=== PATIENT | female | born 1990 | race Caucasian/White ===

== ENCOUNTER 2019-09-11 15:51 | Outpatient (CLI) | payer OTHER, SELFPAY ==
--- NOTE | ~2019-09-11 | US_ITS ---
EXAMINATION: US OB <=14 wk fetus w TV DATE: 09/11/2019 16:48 INDICATION: First trimester dating TECHNIQUE: Real-time pelvic transabdominal and transvaginal ultrasound was performed. COMPARISON: None. FINDINGS: The uterus measures 15.4 x 7.0 x 8.1 cm. There is an intrauterine gestational sac. A yolk sac is identified. heart motion is identified measuring 173 beats per minute (bpm) by M-mode Do ppler. The crown rump length measures 3.7 cm , which correlates with an estimated gestational a ge of 10 weeks and 4 day(s) (+/-) 7 day(s). The right ovary measures 1.5 x 2.4 x 2.1 cm. The left ovary measures 2.9 x 1.1 x 2.7 cm. There is no free fluid in the pelvis. IMPRESSION: 1. Live intrauterine with an estimated gestational age of 10 weeks and 4 day(s) (+/-) 7 day (s) and an estimated delivery date of 04/04/2020. Reviewed, dictated and finalized at location A. IMPRESSION: 1. Live intrauterine with an estimated gestational age of 10 weeks an d 4 day(s) (+/-) 7 day(s) and an estimated delivery date of 04/04/2020.
== END 2019-09-11 15:52 | disposition home or self-care (01) ==
LOC: ANHIMG 15:53
PROVIDERS: PCP Family Medicine; Visit Provider Student in an Organized Health Care Education/Training Program
DX: Z32.00 Encounter for pregnancy test, result unknown (principal); Z3A.10 10 weeks gestation of pregnancy
CPT/HCPCS: 76801; 76817

== ENCOUNTER 2019-10-01 09:43 | Outpatient (CLI) | payer OTHER, SELFPAY ==
[2019-10-01 10:16] LABS: Basophils Absolute Auto 0.1 K/mm3 (0.0-0.1); Basophils Percent Auto 0.4 % (0.2-1.2); Eosinophils Absolute Auto 0.1 K/mm3 (0-0.3); Eosinophils Percent Auto 0.9 % (0-4.4); Hematocrit 33.9 % (37.0-47.0); Hemoglobin 11.3 g/dL (12.0-15.0); Immature Granulocyte Absolute 0.14 K/mm3 (0.00-0.031); Immature Granulocyte Percent A 1.1 % (0-0.5); Lymphocytes Percent Auto 13.4 % (18.3-44.2); Mean Corpuscular HGB Conc 33.3 g/dl (32-36); Mean Corpuscular Hemoglobin 30.1 pg (26-34); Mean Corpuscular Volume 90.2 fl (80-100); Mean Platelet Volume 10.1 fl (7.4-10.4); Monocytes Absolute Auto 0.7 K/mm3 (0.1-0.6); Monocytes Percent Auto 5.1 % (2.6-8.5); Neutrophils Percent Auto 79.1 % (45.5-73.1); Platelet Count Result 195 k/mm3 (150-375); Red Blood Count 3.76 M/mm3 (4.2-5.4); Red Cell Distribution Width 12.8 % (11.5-14.5); White Blood Count 12.7 K/mm3 (4.5-10.0)
[2019-10-01 10:18] LABS: Add Urine Microscopic? NO; Appearance Urine Clear (Clear); Bilirubin Urine Negative (Negative); Blood Urine Negative (Negative); Color Urine Straw (Yellow); Glucose Urine UA Negative (Negative); Ketones Urine Negative (Negative); Leukocyte Esterase Ur Negative LEU/UL (NEGATIVE); Nitrate Urine Negative (Negative); Protein Urine Negative (Negative); Specific Grav Ur 1.008 (1.001-1.035); Urobilinogen Urine Negative mg/dL (<2.0)
[2019-10-01 11:07] LABS: Vitamin D 25 Hydroxy 25.3 ng/mL
[2019-10-01 11:10] LABS: Thyroid Stimulating Hormone 0.286 uIU/mL (0.465-4.680)
[2019-10-01 11:23] LABS: Hepatitis B Surface Antigen Negative (Negative); Rubella IgG Antibody 7.6 IU/ML
[2019-10-01 11:26] LABS: HIV 1/2 Ab P24 Ag Result Negative (Negative); Hepatitis C Virus Antibody Negative (Negative)
[2019-10-02 11:27] LABS: Rapid Plasma Reagin Non-Reactive (NonReactive)
[2019-10-04 00:10] LABS: Hematocrit 36.7 % (35.0-45.0); Hemoglobin 11.6 g/dL (11.7-15.5); MCH 30.8 pg (27.0-33.0); MCV 97.3 FL (80.0-100.0); RDW 15.1 % (11.0-15.0); Red Blood Cell Count 3.77 Mill/uL (3.80-5.10)
== END 2019-10-01 09:44 | disposition home or self-care (01) ==
PROVIDERS: PCP Family Medicine; Visit Provider Student in an Organized Health Care Education/Training Program
DX: Z34.90 Encounter for supervision of normal pregnancy, unspecified, unspecified trimester (principal); Z3A.00 Weeks of gestation of pregnancy not specified
CPT/HCPCS: 36415; 81003; 81243; 82306; 83021; 84443; 85025; 86592; 86703; 86762; 86787; 86803; 86900; 86901; 87077; 87086; 87088; 87186; 87340; G0432

== ENCOUNTER 2019-10-09 09:59 | Outpatient (CLI) | payer OTHER, SELFPAY ==
[2019-10-09 11:14] LABS: Thyroid Stimulating Hormone 0.544 uIU/mL (0.465-4.680); Total Triiodothyronine (T3) 1.51 NG/ML (0.97-1.69)
[2019-10-09 11:28] LABS: Free T4 Free Thyroxine 0.77 ng/mL (0.78-2.19)
== END 2019-10-09 10:00 | disposition home or self-care (01) ==
LOC: ANHLAB 10:02
PROVIDERS: PCP Family Medicine; Visit Provider Student in an Organized Health Care Education/Training Program
DX: R79.89 Other specified abnormal findings of blood chemistry (principal)
CPT/HCPCS: 36415; 84439; 84443; 84480

== ENCOUNTER 2019-11-19 14:43 | Outpatient (CLI) | payer OTHER, SELFPAY ==
--- NOTE | ~2019-11-19 | US_ITS ---
EXAMINATION: US OB /maternal detail DATE: 11/19/2019 16:00 INDICATION: survey. TECHNIQUE: Multiple obstetric sonographic images performed. FINDINGS: Comparison to ultrasound dated 09/11/2019 There is a single living fetus in vertex presentation. The placenta is posterior. Placenta is low ly ing. The cervix is not well visualized. Amniotic fluid volume is subjectively normal. cardiac activity and movement is noted with a heart rate of 145 beats per minute. The following anatomy was identified as normal: 4 chamber heart 3 vessel cord cord insertion kidneys urinary bladder stomach spine diaphragm ventricles cisterna magna cerebellum The following biometric data were obtained: BPD: 48mm corresponds to gestational age 20 weeks 4 days. Head circumference: 179 mm corresponds to gestational age 20 weeks 2 days. Abdominal circumference: 150 mm corresponds to gestational age 20 weeks 2 days. Femur length: 33 mm corresponds to gestational age 20 weeks 2 days. Head circumference to abdominal circumference ratio: 1.19 (normal range for expected gestational age is 1.07-1.25). Estimated weight: 345 grams +/- 52 grams using Hadlock method. IMPRESSION: 1: Single living intrauterine with an estimated gestational age of 20weeks 3days by initial ultrasound measurements, with an EDC of 04/04/2020 in vertex presentation. 2. Normal survey. 3: Low-lying posterior placenta. Cannot exclude previa. Recommend follow-up ultrasound in third trime ster to ensure placental migration. Reviewed, dictated and finalized at location A. IMPRESSION: 1: Single living intrauterine with an estimated gestational age of 20 weeks 3days by initial ultrasound measurements, with an EDC of 04/04/2020 in ve rtex presentation. 2. Normal survey. 3: Low-lying posterior placenta. Cannot exclude previa. Recommend follow-up ult rasound in third trimester to ensure placental migration.
== END 2019-11-19 14:44 | disposition home or self-care (01) ==
PROVIDERS: PCP Family Medicine; Visit Provider Student in an Organized Health Care Education/Training Program
DX: O44.42 Low lying placenta NOS or without hemorrhage, second trimester (principal); Z3A.20 20 weeks gestation of pregnancy
CPT/HCPCS: 76805

== ENCOUNTER 2020-01-01 08:43 | Outpatient (CLI) | payer OTHER, SELFPAY ==
--- NOTE | 2020-01-01 09:08 | ECG_ITS ---
Measurements Intervals [place] Rate: 100 P: 56 TN: 158 QRS: 52 QRSD: 81 T: 0 QT: 344 QTc: 444 Interpretive Statements SINUS TACHYCARDIA POSSIBLE LEFT ATRIAL ENLARGEMENT MINIMAL Q WAVES- INFERIOR LEADS BORDERLINE ST-T WAVE ABNORMALITY- INFERIOR LEADS BASELINE ARTIFACT- II, III, AVF BORDERLINE ECG Electronically Signed On 01-01-2020 9:29:22 CDT by Wolfgang Blackmon D.O.
[2020-01-01 10:16] LABS: Basophils Absolute Auto 0.1 K/mm3 (0.0-0.1); Basophils Percent Auto 0.4 % (0.2-1.2); Eosinophils Absolute Auto 0.2 K/mm3 (0-0.3); Eosinophils Percent Auto 1.5 % (0-4.4); Hematocrit 33.2 % (37.0-47.0); Hemoglobin 11.2 g/dL (12.0-15.0); Immature Granulocyte Absolute 0.16 K/mm3 (0.00-0.031); Immature Granulocyte Percent A 1.4 % (0-0.5); Lymphocytes Absolute Auto 1.48 K/mm3 (0.9-3.2); Lymphocytes Percent Auto 13.1 % (18.3-44.2); Mean Corpuscular HGB Conc 33.7 g/dl (32-36); Mean Corpuscular Hemoglobin 31.6 pg (26-34); Mean Corpuscular Volume 93.8 fl (80-100); Mean Platelet Volume 10.3 fl (7.4-10.4); Monocytes Absolute Auto 0.7 K/mm3 (0.1-0.6); Monocytes Percent Auto 6.6 % (2.6-8.5); Neutrophils Absolute Auto 8.7 K/mm3 (1.3-6.7); Platelet Count Result 178 k/mm3 (150-375); Red Blood Count 3.54 M/mm3 (4.2-5.4); Red Cell Distribution Width 13.1 % (11.5-14.5); White Blood Count 11.3 K/mm3 (4.5-10.0)
[2020-01-01 11:11] LABS: Free T4 Free Thyroxine 0.59 ng/mL (0.78-2.19)
[2020-01-01 11:22] LABS: Glucose 1 Hour PP 50gm Dose 125 mg/dL
[2020-01-01 12:21] LABS: Total Triiodothyronine (T3) 1.61 NG/ML (0.97-1.69)
== END 2020-01-01 08:44 | disposition home or self-care (01) ==
PROVIDERS: PCP Family Medicine; Visit Provider Student in an Organized Health Care Education/Training Program
DX: Z34.82 Encounter for supervision of other normal pregnancy, second trimester (principal)
CPT/HCPCS: 36415; 82947; 84439; 84443; 84480; 85025; 86850; 86900; 86901; 93005

== ENCOUNTER 2020-03-04 17:00 | Outpatient (CLI) | payer SELFPAY ==
[2020-03-04 17:18] LABS: Basophils Absolute Auto 0.1 K/mm3 (0.0-0.1); Basophils Percent Auto 0.5 % (0.2-1.2); Eosinophils Absolute Auto 0.2 K/mm3 (0-0.3); Eosinophils Percent Auto 1.5 % (0-4.4); Hemoglobin 10.2 g/dL (12.0-15.0); Immature Granulocyte Absolute 0.22 K/mm3 (0.00-0.031); Immature Granulocyte Percent A 2.1 % (0-0.5); Lymphocytes Absolute Auto 1.43 K/mm3 (0.9-3.2); Lymphocytes Percent Auto 13.8 % (18.3-44.2); Mean Corpuscular Hemoglobin 31.3 pg (26-34); Mean Platelet Volume 10.5 fl (7.4-10.4); Monocytes Absolute Auto 1.1 K/mm3 (0.1-0.6); Monocytes Percent Auto 10.2 % (2.6-8.5); Neutrophils Absolute Auto 7.4 K/mm3 (1.3-6.7); Neutrophils Percent Auto 71.9 % (45.5-73.1); Platelet Count Result 179 k/mm3 (150-375); Red Blood Count 3.26 M/mm3 (4.2-5.4); Red Cell Distribution Width 13.5 % (11.5-14.5); White Blood Count 10.3 K/mm3 (4.5-10.0)
[2020-03-04 18:13] LABS: HIV 1/2 Ab P24 Ag Result Negative (Negative)
[2020-03-05 09:52] LABS: Rapid Plasma Reagin Non-Reactive (NonReactive)
== END 2020-03-04 17:01 | disposition home or self-care (01) ==
PROVIDERS: PCP Family Medicine; Visit Provider Obstetrics & Gynecology
DX: Z34.83 Encounter for supervision of other normal pregnancy, third trimester (principal); Z3A.00 Weeks of gestation of pregnancy not specified
CPT/HCPCS: 36415; 85025; 86592; 86703; G0432

== ENCOUNTER 2020-03-24 15:25 | Outpatient (CLI) | payer OTHER, SELFPAY ==
[2020-03-24 15:59] LABS: Hematocrit 29.4 % (37.0-47.0); Hemoglobin 10.1 g/dL (12.0-15.0); Mean Corpuscular HGB Conc 34.4 g/dl (32-36); Mean Corpuscular Hemoglobin 32.1 pg (26-34); Mean Corpuscular Volume 93.3 fl (80-100); Mean Platelet Volume 10.6 fl (7.4-10.4); Platelet Count Result 163 k/mm3 (150-375); Red Blood Count 3.15 M/mm3 (4.2-5.4); Red Cell Distribution Width 14.2 % (11.5-14.5); White Blood Count 10.9 K/mm3 (4.5-10.0)
[2020-03-25 07:21] LABS: Rapid Plasma Reagin Non-Reactive (NonReactive)
== END 2020-03-24 15:26 | disposition home or self-care (01) ==
PROVIDERS: PCP Family Medicine; Visit Provider Student in an Organized Health Care Education/Training Program
DX: Z34.93 Encounter for supervision of normal pregnancy, unspecified, third trimester (principal); Z3A.00 Weeks of gestation of pregnancy not specified
CPT/HCPCS: 36415; 85027; 86592; 86850; 86900; 86901

== ENCOUNTER 2020-03-25 06:53 | Inpatient (IN) | payer OTHER, SELFPAY ==
[2020-03-25] VITALS (65 sets, daily range): BP systolic 102–125; BP diastolic 58–81; PULSE 92–125; RESP 16–18; TEMP 36.3–37.4; O2SAT 87–100; BMI 32.6
[2020-03-25] MEDS: LACTATED RINGERS 1,000 ML 125 ML IV CONT (07:53)
--- NOTE | 2020-03-25 08:10 | LDADM ---
This patient, Melody Nelson, was admitted to Labor/Delivery/Recovery 119 on 03/25/20 at 06:53. Plans for labor, pain management and were discussed with patient. Patient/family oriented to hospital policies and general routines including ID bracelet, bed and alarms, visiting hours, pain management, procedures, bathroom and other care routines, personal items, smoking policy, room service/diet and guest tray routines, infant security routines, call light, and visiting hours. Patient/Family are encouraged to report perceived risks to care and to ask questions if they do not understand what they are told or what they should do. See OBIX for further documentation.
--- NOTE | 2020-03-25 08:19 | PM.IMHP ---
H&P: HPI History of Present Illness Date/Time: 03/25/20 08:19 The patient is a 29-year-old currently 39 weeks gestation. LMP 06/26/2019 with an estimated due date of April 01, 2020. Patient is dated by last menstrual period consistent with ultrasound on September 11, 2019 at 10 weeks gestation. Patient presents to Labor and delivery for a scheduled repeat section. Patient has a history of previous section x2. Patient reports feeling well today. Denies any vaginal bleeding, leakage of fluid, or contractions. Reports good movement. Chief complaint: repeat c/s Narrative: Melody Nelson is a 29 year old female Review of Systems Review of Systems: All systems reviewed & are unremarkable except as noted in HPI and below Constitutional: Constitutional: Reports as per HPI, Reports no additional constitutional complaints, Denies chills, Denies fever(s), Denies headache(s) and Denies night sweats Eyes: Eyes: Reports as per HPI and Reports no additional eye complaints ENT: Reports system reviewed and no additional complaints, except as documented, Reports as per HPI, Reports Normal hearing present and Denies headache(s) Cardiovascular: Cardiovascular: Reports as per HPI, Reports no additional cardiovascular complaints, Denies chest pain and Denies dyspnea Respiratory: Respiratory: Reports as per HPI, Reports no additional respiratory complaints, Denies cough and Denies dyspnea Gastrointestinal: Gastrointestinal: Reports as per HPI, Reports no additional gastrointestinal complaints, Denies abdominal pain, Denies change in bowel habits, Denies change in stool character, Denies nausea and Denies vomiting Genitourinary: Genitourinary: Reports no additional female genitourinary complaints, Reports as per HPI, Denies abnormal vaginal bleeding, Denies genital lesions, Denies hot flashes, Denies dyspareunia, Denies pelvic pain, Denies sexual dysfunction, Denies urinary incontinence, Denies vaginal discharge, Denies vaginal dryness and Denies vaginal odor Musculoskeletal: Musculoskeletal: Reports no additional musculoskeletal complaints and Reports as per HPI Integumentary/Breasts: Skin/Breast: Reports system reviewed and no additional complaints, except as docu, Reports as per HPI, Denies breast pain and Denies nipple discharge Neurologic: Reports system reviewed and no additional complaints, except as documented, Reports as per HPI, Reports Normal hearing present and Denies headache(s) Psychiatric: Psychiatric: Reports no additional psychiatric complaints, Reports as per HPI, Denies anxiety and Denies depression Endocrine: Endocrine: Reports no additional endocrine complaints and Reports as per HPI Hematologic/Lymphatic: Hematologic/Lymphatic: Reports no additional hematologic/lymphatic complaints and Reports as per HPI Allergic/Immunologic: Allergic/Immunologic: Reports no additional allergic/immunologic complaints and Reports as per HPI [facility] Past Medical History Medical History (Updated 03/25/20 @ 08:31 by Carlee Moses MD) Left ovarian cyst Surgical History Surgical History (Updated 03/25/20 @ 08:28 by Carlee Moses MD) H/O ovarian cystectomy Previous section x 2 Family History Family History Grandparent Diabetes mellitus Hypertension Family history of coronary artery disease Mother Hypertension Social History Social History Smoking status: Never smoker Second hand tobacco smoke exposure: No Alcohol intake: never Substance use: never Gender identity (if verbalized by the patient): Female Spiritual care concerns: No Meds Home Medications and Allergies Home Medications Medication Instructions Recorded Confirmed Type vits 75-iron 28 mg-folic 1 pkg PO DAILY 08/20/19 03/25/20 History acid 800 mcg-omega-3 oral combo pack ferrous sulfate 32
--- NOTE | 2020-03-25 08:33 | WPDHPUPDATE1 ---
History and Physical Update Update Date/Time: 03/25/20 08:33 History and Physical has been reviewed, including an updated exam of the patient. There are NO changes in the patient's condition. Risks, benefits, and alternatives have been discussed and questions answered. Patient agrees to proceed with procedure.
--- NOTE | 2020-03-25 08:36 | WPDANESEPPF ---
Anes - Initial Pre Proc Eval Procedure: Operation Date: 03/25/20 09:00 Proposed Procedures p Repeat Section - Carlee Moses MD Date/Time: 03/25/20 08:36 Surgeon: Carlee Moses MD Pre Op Diagnosis: repeat c/s Patient Data Age: 29 Gender: F Height: 5 ft 4 in Weight: 86.3 kg Last Vital Signs Pulse 114 H 03/25/20 07:14 BP 115/79 03/25/20 07:14 Allergies Allergy/AdvReac Type Severity Reaction Status Date / Time No Known Allergies Allergy Verified 03/24/20 14:55 Home Medications Medication Instructions Recorded Confirmed Type vits 75-iron 28 mg-folic 1 pkg PO DAILY 08/20/19 03/25/20 History acid 800 mcg-omega-3 oral combo pack ferrous sulfate 325 mg PO DAILY 03/25/20 03/25/20 History Patient hx anesthesia problems: none Family hx anesthesia problems: none PMFSH Past Medical History Medical History Left ovarian cyst Surgical History Surgical History H/O ovarian cystectomy Previous section x 2 Family History Family History Grandparent Diabetes mellitus Hypertension Family history of coronary artery disease Mother Hypertension Social History Social History Smoking status: Never smoker Second hand tobacco smoke exposure: No Alcohol intake: never Substance use: never Gender identity (if verbalized by the patient): Female Spiritual care concerns: No Anes - Eval Final PreProcedure Day of Procedure 03/25/20 08:36 Patient weight: overweight Heart: regular rate and rhythm Lungs: clear to auscultation Airway: Mallampati scale class II Neurological: alert and oriented Last oral intake: >/= 8 hours ASA classification: II Emergent: no Anesthetic plan: proceed Anesthesia type and monitoring: regional spinal and standard monitoring Informed Consent: The patient's anesthetic plan and its attendant risks and benefits were discussed with the patient/family/POA. Questions were solicited and answers provided to the satisfaction of the patient/family/POA.
[2020-03-25] MEDS: ceFAZolin 2 GM/D5W 50 ML 2 GM/50 ML BAG IVPB (09:10)
[2020-03-25] MEDS: ONDANSETRON INJ 4 MG/2 ML VIAL IV PUSH (09:57)
--- NOTE | 2020-03-25 10:42 | PM.PROC ---
Procedure Note - Detailed Date of procedure: 03/25/20 Pre-op diagnosis: repeat c/s Previous section x 2 Post-op diagnosis: same Procedure performed: Repeat low transverse section via Pfannenstiel Description of procedure: The patient was taken to the operating room where she self-transferred to the operating room table. Spinal anesthesia was administered and the patient was positioned in dorsal supine position with a leftward tilt. She was prepped and draped in the usual sterile fashion. Anesthesia was tested and found to be adequate. A Pfannenstiel skin incision was made with a scalpel and carried through to the underlying layer of fascia with the Bovie. The fascia was incised in the midline and the fascial incision was extended laterally with the use of forceps and Maxwell scissors. The inferior aspect of the fascial incision was grasped with Ebony clamps, elevated, and the underlying rectus muscles were dissected off with Maxwell scissors. Attention was turned to the superior aspect of the fascial incision, which in a similar manner, was grasped with Ebony clamps, elevated, and the underlying rectus muscles were also dissected off with Maxwell scissors. The rectus muscles were in the midline. Thick adhesions were encountered making entry into the peritoneal cavity slightly difficult. Careful dissection inferiorly was performed with blunt as well as sharp dissection. The peritoneal cavity was then able to be accessed bluntly. Bladder blade was inserted. The vesicouterine peritoneum was visualized and low. The lower uterine segment was also visualized and noted to be thin, although no window was apparent. A low-transverse uterine incision was made with the scalpel. This incision was extended laterally with bandage scissors. Amniotomy was performed and clear amniotic fluid was noted. The infant's head was grasped and guided to the level of the uterine incision. The bladder blade was removed and the 's head was guided towards the uterine incision. It was felt that additional space was needed for delivery and the rectus muscles on the left side were transected approx. 1cm to facilitate delivery. The infant's head was then delivered atraumatically without difficulty. A nuchal cord x1 was noted and easily reduced. The 's neck, shoulders, and rest of body were delivered atraumatically with gentle fundal pressure. The was crying spontaneously and the nose and mouth were suctioned with bulb suction. Cord was clamped and cut. The was handed off and care was assumed by awaiting nursing staff. A segment of cord was collected for cord gases. Cord blood was collected. The placenta was then delivered spontaneously with gentle massage. The uterus was exteriorized and cleared of all clots and debris. The uterine incision was repaired with 0 Vicryl in a running locked fashion. A 2nd imbricating layer with 0 Monocryl was performed. A small area of bleeding along the inferior edge of the incision was noted and repaired with a single ojtwky-na-zgrda suture using 0 Monocryl. Excellent hemostasis was noted. On inspection, the uterus appeared normal. The ovaries and fallopian tubes also appeared to be normal bilaterally. The uterus was replaced inside of the abdominal cavity. Another pinpoint area of bleeding superiorly to the uterine incision was noted and a single fuoxrd-yj-onctk suture with 0 vicryl was placed. Excellent hemostasis was noted. Hemaderm and Seprafilm were applied across the uterine incision and anterior surface of the uterus. The fascia was reapproximated with 0 Vicryl in a running fashion. The subcutaneous layer was irrigated and dried. Pinpoint areas of bleeding were made hemostatic with Bovie. The subcutaneous layer was reapproximated with 0 plain suture and the skin was closed with 4-0 Monocryl in a subcuticular fashion. The skin was then cleansed and dried and Exofin skin adhesive was applied across the incision. A pressure dressin
--- NOTE | 2020-03-25 11:03 | PM.OBPRVD ---
OB - Delivery Note Procedure Delivery date: 03/25/20 Procedure: Procedures Operation Date: 03/25/20 09:00 Actual Procedures Side Surgeon p Section Carlee Moses MD events: Previous Intrapartal events: None Delivery monitor: external FHT Route of delivery: Estimated blood loss (mL): 450 Anesthesia type: Spinal Complications: No immediate complications Baby Date of : 03/25/20 Time of : 09:50 Weeks of gestation at delivery: 39 Infant gender: Female Weight (pounds): 7 Weight (ounces): 13 presentation: vertex Placenta delivery description: Spontaneous cord vessel description: 3 Vessels, Nuchal Cord (x1) and Clamped/Cut score one minute: 3 score five minutes: 6 score ten minutes: 7
[2020-03-25] MEDS: OXYTOCIN 30 UNITS/NS 500 ML 30 UNITS/500 ML BAG 125 UNITS IV CONT (12:04)
[2020-03-25] MEDS: diphenhydrAMINE HCl INJ 50 MG/ML VIAL 25 MG IV PUSH ×2 (13:34→19:52)
--- NOTE | 2020-03-25 14:00 | PC.NURSE ---
Itching is decreasing since Benadryl.
--- NOTE | 2020-03-25 14:46 | OBPPTRN ---
1415 Patient transferred to post room #285 via stretcher. Support person present. Oriented to unit, room, information board, rooming in, admission packet and security measures. Patient verbalizes understanding.
[2020-03-25] MEDS: KCL 20 MEQ/D5/0.45% SOD CHL 1,000 ML 125 ML IV CONT (17:37)
[2020-03-25] MEDS: IBUPROFEN 600 MG TABLET PO (19:12)
[2020-03-25] MEDS: DOCUSATE SODIUM 100 MG CAPSULE PO (19:12)
[2020-03-26] VITALS: BP 101/64; PULSE 99; RESP 16; TEMP 36.8; O2SAT 99
[2020-03-26] MEDS: diphenhydrAMINE HCl INJ 50 MG/ML VIAL 25 MG IV PUSH (01:26)
[2020-03-26 04:00] VITALS: BP 109/72; PULSE 92; RESP 16; TEMP 36.7; O2SAT 99
[2020-03-26 05:29] LABS: Basophils Percent Auto 0.4 % (0.2-1.2); Eosinophils Absolute Auto 0.1 K/mm3 (0-0.3); Eosinophils Percent Auto 1.1 % (0-4.4); Hematocrit 28.9 % (37.0-47.0); Hemoglobin 9.6 g/dL (12.0-15.0); Immature Granulocyte Absolute 0.13 K/mm3 (0.00-0.031); Immature Granulocyte Percent A 1.2 % (0-0.5); Lymphocytes Absolute Auto 1.27 K/mm3 (0.9-3.2); Lymphocytes Percent Auto 11.8 % (18.3-44.2); Mean Corpuscular HGB Conc 33.2 g/dl (32-36); Mean Corpuscular Hemoglobin 31.5 pg (26-34); Mean Corpuscular Volume 94.8 fl (80-100); Mean Platelet Volume 11.2 fl (7.4-10.4); Monocytes Absolute Auto 1.1 K/mm3 (0.1-0.6); Monocytes Percent Auto 9.7 % (2.6-8.5); Neutrophils Absolute Auto 8.2 K/mm3 (1.3-6.7); Neutrophils Percent Auto 75.8 % (45.5-73.1); Platelet Count Result 136 k/mm3 (150-375); Red Blood Count 3.05 M/mm3 (4.2-5.4); Red Cell Distribution Width 14.1 % (11.5-14.5); White Blood Count 10.8 K/mm3 (4.5-10.0)
[2020-03-26 08:15] VITALS: BP 113/75; PULSE 108; RESP 16; TEMP 37.1; O2SAT 100
[2020-03-26] MEDS: DOCUSATE SODIUM 100 MG CAPSULE PO ×2 (08:29→19:38)
[2020-03-26] MEDS: MULTIVIT/MIN/PREN/FOL AC/IRON TABLET 1 TAB PO (08:29)
[2020-03-26] MEDS: IBUPROFEN 600 MG TABLET PO ×3 (08:29→19:38)
[2020-03-26] MEDS: POLYSACCHARIDE IRON COMPLEX 150 MG CAPSULE PO ×2 (08:29→19:39)
--- NOTE | 2020-03-26 08:40 | PM.OBPNVD ---
OB - PN: Subj Subjective Date/time seen: 03/26/20 08:40 Patient doing well this morning. Reports adequate pain control with medication. Denies any headache, chest pain, shortness of breath, nausea, vomiting. Tolerating some p.o.. Ambulating well. May catheter removed this morning. Has not yet voided. No flatus yet. OB - PN: Obj Data Labs CBC & Chem 7: 03/26/20 04:25 Labs: Laboratory Results - last 24 hr 03/26/20 04:25 WBC 10.8 H RBC 3.05 L Hgb 9.6 L Hct 28.9 L MCV 94.8 MCH 31.5 MCHC 33.2 RDW 14.1 Plt Count 136 L MPV 11.2 H Immature Gran % (Auto) 1.2 H Neut % (Auto) 75.8 H Lymph % (Auto) 11.8 L [place] % (Auto) 9.7 H Eos % (Auto) 1.1 Baso % (Auto) 0.4 Lymph # (Auto) 1.27 [place] # (Auto) 1.1 H Eos # (Auto) 0.1 Baso # (Auto) 0.0 Abs Immat Gran (auto) 0.13 H Absolute Neuts (auto) 8.2 H Absolute Nucleated RBC 0.0 Nucleated RBC % 0.0 OB - PN A/P Assessment and Plan (1) Delivery by section of full-term infant: Code(s): O82 - Encounter for delivery without indication Status: Acute Assessment and Plan: POD#1 Pt doing well Continue routine postoperative care Pain management PRN Encourage ambulation and use of IS Infant was transferred yesterday, may leave on pass to see today Time Spent With Patient Time: Total time spent is greater than 50% in coordination of care (as documented) at patient's floor/unit and/or counseling patient: Exam Const: General: comfortable and no acute distress GI: Other: abdomen soft, appropriately tender, inc covered with bandage that is c/d/i Extrem: Right lower extremity: edema (trace) Left lower extremity: edema (trace) Other: no calf tenderness
--- NOTE | 2020-03-26 10:57 | WPDANLDPN2 ---
Anes-Prog Note L&D Date/Time: 03/26/20 10:57 Neuro status: Neuro function grossly intact. Cardiovascular status: normal Respiratory status: normal Airway patency: baseline Mental status: baseline Post-Op hydration status: normal Vital Signs: Last Vital Signs Temp 37.1 C 03/26/20 08:15 Pulse 108 H 03/26/20 08:15 Resp 16 03/26/20 08:15 BP 113/75 03/26/20 08:15 Pulse Ox 100 03/26/20 08:15 Pain score (VAS): 0 I/O: Intake & Output 03/25/20 03/26/20 03/26/20 23:59 07:59 15:59 Intake Total 230 1000 Output Total 2200 750 550 Balance -1970 250 -550 Post-procedural complaints: none Patient feedback: Patient satisfied with anesthetic care.
--- NOTE | 2020-03-26 10:59 | WPDANLDNPN2 ---
Anes-Prog Note L&D-Neuraxial Date/Time: 03/26/20 10:59 Neuraxial medications: intrathecal PF morphine Opiod-related complaints: none Patient feedback: Patient satisfied with post-operative pain management.
[2020-03-26] MEDS: HYDROcodone/acetaminophen (*CRX) 5-325 MG TABLET 1 TAB PO ×2 (13:55→19:39)
--- NOTE | 2020-03-26 14:00 | PC.NURSE ---
Pt left on therapeutic pass per wheelchair.
[2020-03-26 19:30] VITALS: BP 123/80; PULSE 104; RESP 16; TEMP 36.7; O2SAT 100
[2020-03-27] MEDS: HYDROcodone/acetaminophen (*CRX) 5-325 MG TABLET 1 TAB PO (01:15)
[2020-03-27 08:20] VITALS: BP 124/80; PULSE 102; RESP 16; TEMP 36.7; O2SAT 100
[2020-03-27] MEDS: IBUPROFEN 600 MG TABLET PO (08:34)
[2020-03-27] MEDS: POLYSACCHARIDE IRON COMPLEX 150 MG CAPSULE PO (08:34)
[2020-03-27] MEDS: DOCUSATE SODIUM 100 MG CAPSULE PO (08:34)
[2020-03-27] MEDS: MULTIVIT/MIN/PREN/FOL AC/IRON TABLET 1 TAB PO (08:34)
--- NOTE | 2020-03-27 09:38 | P.PNOB_ITS ---
OB - PN: Subj Subjective Date/time seen: 03/27/20 09:38 Patient doing well this morning. States that abdominal pain is well controlled medication. Denies any headache, chest pain, shortness of breath, nausea, or vomiting. Ambulating well. Voiding without difficulty. Passing flatus. Minimal lochia. OB - PN: Obj Data Labs CBC & Chem 7: 03/26/20 04:25 OB - PN A/P Assessment and Plan (1) Delivery by section of full-term infant: Code(s): O82 - Encounter for delivery without indication Status: Acute Assessment and Plan: POD#2 Patient doing well Pt requesting POD#2 discharge, which I think is reasonable, transferred Emergency precautions reviewed RTO in 2 weeks or sooner if necessary Time Spent With Patient Time: Total time spent is greater than 50% in coordination of care (as documented) at patient's floor/unit and/or counseling patient: Exam Const: General: comfortable and no acute distress GI: Inspection: non-distended GI Palp: Yes Soft to palpation and No Te nderness to palpation present (GI) Other: inc c/d/i, fundus below umbilcus Extrem: Other: no calf tenderness
--- NOTE | 2020-03-27 09:43 | PM.OBDSVD ---
DS: Admitting Diagnosis Admitting Diagnosis Admitting Diagnosis: repeat c/s OB - DS: Summary OB Procedures : None OB Procedures Intrapartum: OB Procedures: : None Peripartum Data Procedures: Procedures Operation Date: 03/25/20 09:00 Actual Procedures Side Surgeon p Section Carlee Moses MD Time Spent with Patient Time attestation: Total time spent providing and/or coordinating discharge services: Discharge Plan Discharge Attending physician on discharge: Carlee Moses Discharging Clinician: Carlee Moses Anticipated Discharge Date/Time: 03/27/20 09:43 Patient Disposition: Home, Self-Care Activity: may drive after 2 weeks, as tolerated and pelvic rest Diet: regular Discharge Instructions: Call office ([phone]) to schedule the following appointments: 1. Postoperative/wound check in 2 weeks. 2. visit in 4-6 weeks. You may take Ibuprofen 600mg every 6 hours as needed for pain. I have sent a prescription for a stronger pain medication, [place], to your pharmacy. You may take this as prescribed for breakthrough pain (pain that is not controlled with Ibuprofen). No driving for at least two weeks. You also may not drive while taking narcotics. Pain medication may make you constipated. It may be helpful to take an gnqc-qge-nodzhcy stool softener, such as Colace and/or Senokot, along with the pain medication to help lessen constipation. Call office or go to ED for pain not controlled with medication, headache, chest pain, shortness of breath, fever, chills, persistent nausea or vomiting, severe abdominal pain, heavy vaginal bleeding >2 pads/hour, foul vaginal discharge or odor, any redness near incision, severe pain, pus or drainage from incision site, or problems with your breasts. Education: Mom and Baby Guide Given to: Mother Follow-Up: Call your delivering provider's office for an appointment to be seen in: 2 Weeks Mom and baby should come to the [facility] for the follow-up appointment. Appointment Date/Time: March 28, 2020 at 10:00 am What to expect at your follow-up visit: Physical Assessment Call [phone] if you are unable to keep your appointment time. BREAST CARE: * Wear a snug supportive bra. * For engorgement discomfort: Breast Feeding: * Apply warm moist washcloths * Express milk as needed to relieve engorgement * Wear loose clothing * For sore nipples: * Identify correct latch-on * Apply warm moist washcloths before and after nursing * Air dry nipples after nursing * May apply Lansinoh cream to nipples ABDOMINAL INCISION: (if applicable) * Allow incision to air dry * Do NOT use lotions for powders on your incision * When showering, allow soap and water to run over the incision, but do not wash incision EPISIOTOMY/PERINEAL CARE: * Until bleeding stops, use your claire bottle after urinating * Change your pad frequently throughout the day * You may take sitz baths several times a day (fill your bathtub with warm water and soak for 20 minutes.) Do NOT bathe in the water * No tub baths until seen by your physician - You may shower ACTIVITY: * Rest as much as possible. * Do not exercise or lift anything heavier than your baby (such as laundry or other children.) * Avoid stairs or driving as much as possible. * Do not put anything into the vagina. No douching, tampons, or sexual activity until seen by physician. NOTIFY PHYSICIAN IF YOU HAVE ANY QUESTIONS OR IF ANY OF THE FOLLOWING SYMPTOMS OCCUR: * If your incision becomes red, swollen, or more painful than what you have experienced in the hospital. * If your vaginal bleeding becomes foul smelling. * If your vaginal bleeding becomes more heavy than a period or if your bleeding changes from pink to bright red. However, you may pass an occasional walnut-sized c
--- NOTE | 2020-03-27 10:03 | PC.NURSE ---
Patient viewed the discharge video Mother & Baby Care, The First Two Weeks . Patient was given the opportunity and encouraged to ask questions. Patient verbalized understanding of information shared and has been given the mother/baby guide for home reference.
[2020-03-28 10:11] VITALS: BP 123/78; PULSE 108; RESP 20; TEMP 36.7; O2SAT 100
== END 2020-03-27 10:35 | disposition home or self-care (01) | DRG 788 ==
LOC: ANHLDR 06:55 → ANHOB2 14:49
PROVIDERS: Admitting Provider Student in an Organized Health Care Education/Training Program; PCP Family Medicine; Visit Provider Student in an Organized Health Care Education/Training Program
PROC: 10D00Z1 Extraction of Products of Conception, Low, Open Approach (ICD-10-PCS; CPT 59514; principal; 2020-03-25 09:00)
DX: O34.211 Maternal care for low transverse scar from previous cesarean delivery (principal); O69.81X0 Labor and delivery complicated by cord around neck, without compression, not applicable or unspecified; Z3A.39 39 weeks gestation of pregnancy; Z37.0 Single live birth; Z23 Encounter for immunization
CPT/HCPCS: 36415; 85025; 90471; 90653; A9270; C1765; G0008; J0131; J0690; J1200; J2274; J2370; J2405; J2590; J3480; J7120

== ENCOUNTER 2021-12-31 08:57 | Outpatient (CLI) | payer BC, SELFPAY ==
[2021-12-31 09:25] LABS: Basophils Percent Auto 0.4 % (0.2-1.2); Eosinophils Absolute Auto 0.2 K/mm3 (0-0.3); Eosinophils Percent Auto 1.9 % (0-4.4); Hematocrit 31.6 % (37.0-47.0); Hemoglobin 11.1 g/dL (12.0-15.0); Immature Granulocyte Absolute 0.13 K/mm3 (0.00-0.031); Immature Granulocyte Percent A 1.2 % (0-0.5); Lymphocytes Absolute Auto 1.57 K/mm3 (0.9-3.2); Lymphocytes Percent Auto 14.6 % (18.3-44.2); Mean Corpuscular HGB Conc 35.1 g/dl (32-36); Mean Corpuscular Hemoglobin 31.9 pg (26-34); Mean Corpuscular Volume 90.8 fl (80-100); Mean Platelet Volume 10.2 fl (7.4-10.4); Monocytes Absolute Auto 0.7 K/mm3 (0.1-0.6); Monocytes Percent Auto 6.1 % (2.6-8.5); Neutrophils Absolute Auto 8.2 K/mm3 (1.3-6.7); Neutrophils Percent Auto 75.8 % (45.5-73.1); Platelet Count Result 175 k/mm3 (150-375); Red Blood Count 3.48 M/mm3 (4.2-5.4); Red Cell Distribution Width 13.3 % (11.5-14.5); White Blood Count 10.8 K/mm3 (4.5-10.0)
[2021-12-31 10:18] LABS: HIV 1/2 Ab P24 Ag Result Negative (Negative)
[2021-12-31 14:38] LABS: Vitamin D 25 Hydroxy 25.8 ng/mL
[2021-12-31 14:53] LABS: Hepatitis B Surface Antigen Negative (Negative); Rubella IgG Antibody 5.7 IU/ML
[2021-12-31 15:08] LABS: Hepatitis C Virus Antibody Negative (Negative)
[2022-01-03 05:56] LABS: Rapid Plasma Reagin Non-Reactive (NonReactive)
== END 2021-12-31 08:58 | disposition home or self-care (01) ==
LOC: ANHLAB 08:59
PROVIDERS: PCP Family Medicine; Visit Provider Student in an Organized Health Care Education/Training Program
DX: Z34.90 Encounter for supervision of normal pregnancy, unspecified, unspecified trimester (principal)
CPT/HCPCS: 36415; 82306; 84443; 85025; 86592; 86703; 86762; 86787; 86803; 86850; 86900; 86901; 87086; 87088; 87340; G0432

== ENCOUNTER 2022-03-26 07:47 | Outpatient (CLI) | payer BC, SELFPAY ==
[2022-03-26 09:07] LABS: Basophils Percent Auto 0.4 % (0.2-1.2); Eosinophils Absolute Auto 0.1 K/mm3 (0-0.3); Eosinophils Percent Auto 1.4 % (0-4.4); Hematocrit 29.4 % (37.0-47.0); Hemoglobin 9.7 g/dL (12.0-15.0); Immature Granulocyte Absolute 0.09 K/mm3 (0.00-0.031); Immature Granulocyte Percent A 0.9 % (0-0.5); Lymphocytes Absolute Auto 1.36 K/mm3 (0.9-3.2); Lymphocytes Percent Auto 13.4 % (18.3-44.2); Mean Corpuscular Hemoglobin 31.1 pg (26-34); Mean Corpuscular Volume 94.2 fl (80-100); Mean Platelet Volume 9.8 fl (7.4-10.4); Monocytes Absolute Auto 0.8 K/mm3 (0.1-0.6); Monocytes Percent Auto 7.8 % (2.6-8.5); Neutrophils Absolute Auto 7.7 K/mm3 (1.3-6.7); Neutrophils Percent Auto 76.1 % (45.5-73.1); Platelet Count Result 170 k/mm3 (150-375); Red Blood Count 3.12 M/mm3 (4.2-5.4); Red Cell Distribution Width 13.7 % (11.5-14.5); White Blood Count 10.1 K/mm3 (4.5-10.0)
[2022-03-26 09:15] LABS: Glucose 1 Hour PP 50gm Dose 145 mg/dL
== END 2022-03-26 07:48 | disposition home or self-care (01) ==
LOC: ANHLAB 07:49
PROVIDERS: PCP Family Medicine; Visit Provider Student in an Organized Health Care Education/Training Program
DX: Z34.82 Encounter for supervision of other normal pregnancy, second trimester (principal)
CPT/HCPCS: 36415; 82947; 85025

== ENCOUNTER 2022-04-01 07:20 | Outpatient (CLI) | payer BC, SELFPAY ==
[2022-04-01 07:54] LABS: Glucose Fasting Gestational 95 mg/dL (>/=95)
[2022-04-01 09:40] LABS: Glucose 1 Hour Gest 157 mg/dL (>/=180)
[2022-04-01 11:23] LABS: Glucose 3 Hour Gest 104 mg/dL (>/=140)
[2022-04-01 11:34] LABS: Glucose 2 Hour Gest 160 mg/dL (>/= 155)
== END 2022-04-01 07:21 | disposition home or self-care (01) ==
LOC: ANHLAB 07:21
PROVIDERS: PCP Family Medicine; Visit Provider Student in an Organized Health Care Education/Training Program
DX: O99.810 Abnormal glucose complicating pregnancy (principal); Z3A.00 Weeks of gestation of pregnancy not specified
CPT/HCPCS: 36415; 82951; 82952

== ENCOUNTER 2022-05-25 09:01 | Outpatient (RCR) | payer BC, SELFPAY ==
[2022-04-20 09:37] LABS: Basophils Absolute Auto 0.1 K/mm3 (0.0-0.1); Basophils Percent Auto 0.4 % (0.2-1.2); Eosinophils Absolute Auto 0.2 K/mm3 (0-0.3); Eosinophils Percent Auto 1.3 % (0-4.4); Hematocrit 29.5 % (37.0-47.0); Hemoglobin 9.7 g/dL (12.0-15.0); Immature Granulocyte Absolute 0.24 K/mm3 (0.00-0.031); Lymphocytes Absolute Auto 1.47 K/mm3 (0.9-3.2); Mean Corpuscular HGB Conc 32.9 g/dl (32-36); Mean Corpuscular Hemoglobin 29.8 pg (26-34); Mean Corpuscular Volume 90.5 fl (80-100); Mean Platelet Volume 9.6 fl (7.4-10.4); Monocytes Absolute Auto 0.9 K/mm3 (0.1-0.6); Monocytes Percent Auto 7.7 % (2.6-8.5); Neutrophils Absolute Auto 9.4 K/mm3 (1.3-6.7); Neutrophils Percent Auto 76.6 % (45.5-73.1); Platelet Count Result 173 k/mm3 (150-375); Red Blood Count 3.26 M/mm3 (4.2-5.4); Red Cell Distribution Width 14.6 % (11.5-14.5); White Blood Count 12.3 K/mm3 (4.5-10.0)
[2022-04-20 10:22] VITALS: BP 111/70; PULSE 116
[2022-04-20 10:30] LABS: HIV 1/2 Ab P24 Ag Result Negative (Negative)
[2022-04-20 15:05] LABS: Rapid Plasma Reagin Non-Reactive (NonReactive)
[2022-04-27 10:24] VITALS: BP 108/68; PULSE 121
[2022-05-04 10:04] VITALS: BP 115/76; PULSE 109
[2022-05-11 16:06] VITALS: BP 113/74; PULSE 94
[2022-05-15 13:34] VITALS: BP 114/64; PULSE 116
[2022-05-18 10:47] VITALS: BP 113/73; PULSE 108
--- NOTE | ~2022-05-25 | US_ITS ---
EXAMINATION: US OB BPP wo non-stress DATE: 05/04/2022 10:12 INDICATION: Gestational diabetes during third trimester TECHNIQUE: Real-time pelvic ultrasound was performed. The interpreting radiologist was not present fo r the study. COMPARISON: 04/27/2022 FINDINGS: There is a single living fetus in vertex presentation. The placenta is fundal. heart rate is 14 2 beats per minute (bpm). Biophysical profile performed by the technologist: breathing (30 sec sustained breathing in 30 minutes): 2 out of 2 movement (3 gross body movements in 30 minutes): 2 out of 2 tone (one episode of bucdkro-nmowdoqit-ysrcfhi limb movement): 2 out of 2 Amniotic fluid pocket (2 cm): 2 out of 2 Total score: 8 out of 8 IMPRESSION: 1. Single living fetus in vertex presentation. 2. Biophysical profile 8 out of 8. Reviewed, dictated and finalized at location B. [place]
--- NOTE | ~2022-05-25 | US_ITS ---
EXAMINATION: US OB BPP wo non-stress DATE: 04/27/2022 10:15 INDICATION: Gestational diabetes. Third trimester. TECHNIQUE: Real-time pelvic ultrasound was performed. COMPARISON: Ultrasound 04/20/2022 FINDINGS: There is a single living fetus in vertex presentation. The placenta is fundal. heart rate is 1 41 beats per minute (bpm). Biophysical profile performed by the technologist: breathing (30 sec sustained breathing in 30 minutes): 2 out of 2 movement (3 gross body movements in 30 minutes): 2 out of 2 tone (one episode of henwfev-idfyczoky-bszyafm limb movement): 2 out of 2 Amniotic fluid pocket (2 cm): 2 out of 2 Total score: 8 out of 8 IMPRESSION: 1. Single living fetus in vertex presentation. 2. Biophysical profile 8 out of 8. Reviewed, dictated and finalized at location A.
--- NOTE | ~2022-05-25 | US_ITS ---
EXAMINATION: US OB BPP wo non-stress DATE: 05/11/2022 16:32 INDICATION: Gestational diabetes during third trimester TECHNIQUE: Real-time pelvic ultrasound was performed. The interpreting radiologist was not present fo r the study. COMPARISON: None. FINDINGS: There is a single living fetus in vertex presentation. The placenta is fundal. heart rate is 13 5 beats per minute (bpm). To the amniotic fluid index is 14.9 cm which is normal. Biophysical profile performed by the technologist: breathing (30 sec sustained breathing in 30 minutes): 2 out of 2 movement (3 gross body movements in 30 minutes): 2 out of 2 tone (one episode of ekuiypt-dqnhdnega-apnmbdb limb movement): 2 out of 2 Amniotic fluid pocket (2 cm): 2 out of 2 Total score: 8 out of 8 IMPRESSION: 1. Single living fetus in vertex presentation. 2. Biophysical profile 8 out of 8. Reviewed, dictated and finalized at location F. 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
--- NOTE | ~2022-05-25 | US_ITS ---
EXAMINATION: US OB BPP wo non-stress DATE: 04/20/2022 10:19 INDICATION: Gestational diabetes. Third trimester. TECHNIQUE: Real-time pelvic ultrasound was performed. COMPARISON: None. FINDINGS: There is a single living fetus in vertex presentation. The placenta is posterior. heart rate i s 145 beats per minute (bpm). Biophysical profile performed by the technologist: breathing (30 sec sustained breathing in 30 minutes): 2 out of 2 movement (3 gross body movements in 30 minutes): 2 out of 2 tone (one episode of rblynjo-fwwbumuux-ogkemea limb movement): 2 out of 2 Amniotic fluid pocket (2 cm): 2 out of 2 Total score: 8 out of 8 IMPRESSION: 1. Single living fetus in vertex presentation. 2. Biophysical profile 8 out of 8. Reviewed, dictated and finalized at location A.
--- NOTE | ~2022-05-25 | US_ITS ---
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 FINDINGS: Comparison to 05/11/2022 There is a single living fetus in breech presentation. The placenta is fundal without placenta previ a. Cervical length is 4.5 cm. cardiac activity and movement is noted with a heart rate of 143 beats per minute. Biophysical profile: breathin of 2 movement: 2 of 2 tone: 2 of 2 Amniotic flud pocket: 2 of 2 Total score: 8 of 8 IMPRESSION: 1. Single living intrauterine in breech presentation. 2: Total biophysical profile score of 8/8. Reviewed, dictated and finalized at location A. 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
[2022-05-25 09:30] VITALS: BP 112/66; PULSE 84
== END 2022-06-24 13:29 | disposition home or self-care (01) ==
LOC: ANHOBOP 09:01
PROVIDERS: PCP Family Medicine; Visit Provider Student in an Organized Health Care Education/Training Program
DX: O24.419 Gestational diabetes mellitus in pregnancy, unspecified control (principal); Z11.4 Encounter for screening for human immunodeficiency virus [HIV]; Z3A.00 Weeks of gestation of pregnancy not specified
CPT/HCPCS: 36415; 59025; 76819; 85025; 86592; 86703; G0432

== ENCOUNTER 2022-05-31 12:07 | Outpatient (CLI) | payer BC, SELFPAY ==
[2022-05-31 12:41] LABS: Hematocrit 29.7 % (37.0-47.0); Hemoglobin 10.2 g/dL (12.0-15.0); Mean Corpuscular HGB Conc 34.3 g/dl (32-36); Mean Corpuscular Hemoglobin 32.2 pg (26-34); Mean Corpuscular Volume 93.7 fl (80-100); Mean Platelet Volume 10.1 fl (7.4-10.4); Platelet Count Result 161 k/mm3 (150-375); Red Blood Count 3.17 M/mm3 (4.2-5.4); Red Cell Distribution Width 15.3 % (11.5-14.5); White Blood Count 10.3 K/mm3 (4.5-10.0)
[2022-05-31 16:13] LABS: Rapid Plasma Reagin Non-Reactive (NonReactive)
== END 2022-05-31 12:08 | disposition home or self-care (01) ==
PROVIDERS: PCP Family Medicine; Visit Provider Student in an Organized Health Care Education/Training Program
DX: Z01.818 Encounter for other preprocedural examination (principal)
CPT/HCPCS: 36415; 85027; 86592; 86850; 86900; 86901

== ENCOUNTER 2022-06-01 09:57 | Inpatient (IN) | payer BC, SELFPAY ==
[2022-06-01] VITALS (41 sets, daily range): BP systolic 111–128; BP diastolic 64–92; PULSE 76–116; RESP 11–18; TEMP 36.4–37.1; O2SAT 96–100; BMI 32.4
[2022-06-01] MEDS: LACTATED RINGERS 1,000 ML 125 ML IV CONT ×2 (10:37→11:42)
--- NOTE | 2022-06-01 10:46 | LDADM ---
This patient, Melody Nelson, was admitted to Labor/Delivery/Recovery 119 on 06/01/22 at 09:57. Plans for surgery/ and pain management were discussed with patient. Patient/family oriented to hospital policies and general routines including ID bracelet, bed and alarms, visiting hours, pain management, procedures, bathroom and other care routines, personal items, smoking policy, room service/diet and guest tray routines, security routines, and visiting hours. Patient/Family are encouraged to report perceived risks to care and to ask questions if they do not understand what they are told or what they should do.
[2022-06-01 11:25] LABS: Glucose Point of Care 80 mg/dl (65-105)
[2022-06-01] MEDS: LORATADINE 10 MG TABLET PO (11:45)
[2022-06-01] MEDS: ceFAZolin 2 GM/D5W 50 ML 2 GM/50 ML BAG IVPB (11:46)
--- NOTE | 2022-06-01 11:49 | PM.IMHP ---
H&P: HPI History of Present Illness Date/Time: 06/01/22 11:49 Chief Complaint: Repeat section Narrative: Patient is a 31-year-old LMP 09/01/2021 currently 39 weeks gestation with ARI 06/08/2022. Patient is dated by LMP consistent with ultrasound on 11/29/2021 at 12 weeks gestation. Patient presents to labor and delivery for a scheduled repeat section. Patient has a history of previous section x3. She also had a history of gestational diabetes, well controlled with medication. In general, patient doing well today without complaints. Denies any vaginal bleeding, leakage of fluid, or contractions. Reports good movement. Patient has completed childbearing. She does not desire future fertility and is requesting permanent sterilization to be performed at time of section. Review of Systems Review of Systems: All systems reviewed & are unremarkable except as noted in HPI and below Constitutional: Constitutional: Reports as per HPI and Reports no additional constitutional complaints Eyes: Eyes: Reports as per HPI and Reports no additional eye complaints ENT: Reports system reviewed and no additional complaints, except as documented and Reports as per HPI Cardiovascular: Cardiovascular: Reports as per HPI and Reports no additional cardiovascular complaints Respiratory: Respiratory: Reports as per HPI and Reports no additional respiratory complaints Gastrointestinal: Gastrointestinal: Reports as per HPI and Reports no additional gastrointestinal complaints Genitourinary: Genitourinary: Reports no additional female genitourinary complaints and Reports as per HPI Musculoskeletal: Musculoskeletal: Reports no additional musculoskeletal complaints and Reports as per HPI Integumentary/Breasts: Skin/Breast: Reports system reviewed and no additional complaints, except as docu and Reports as per HPI Neurologic: Reports system reviewed and no additional complaints, except as documented and Reports as per HPI Psychiatric: Psychiatric: Reports no additional psychiatric complaints and Reports as per HPI Endocrine: Endocrine: Reports no additional endocrine complaints and Reports as per HPI Hematologic/Lymphatic: Hematologic/Lymphatic: Reports no additional hematologic/lymphatic complaints and Reports as per HPI Allergic/Immunologic: Allergic/Immunologic: Reports no additional allergic/immunologic complaints and Reports as per HPI PMFSH Past Medical History Medical History Left ovarian cyst Surgical History Surgical History H/O ovarian cystectomy Previous section x 3 Family History Family History Grandparent Diabetes mellitus Hypertension Family history of coronary artery disease Mother Hypertension Social History Social History Smoking status: Never smoker Second hand tobacco smoke exposure: No Alcohol intake: never Substance use: never Lack of Transportation: No Lack of Food: Never True Current Housing: I Have Housing Concerned About Future Housing: No Difficulty Paying Gas/Electric Bills: No Difficulty Paying for Meds: No Currently Unemployed: No Education: High School Diploma/GED Difficulty w/ Childcare or Family Care: No Gender identity (if verbalized by the patient): Female Spiritual care concerns: No Meds Home Medications and Allergies Home Medications Medication Instructions Recorded Confirmed Type vits 75-iron 28 mg-folic 1 pkg PO DAILY 08/20/19 06/01/22 History acid 800 mcg-omega-3 oral combo pack (One A Day Women's DHA) ferrous sulfate 325 mg (65 mg 325 mg PO BID #90 tabs 03/28/22 06/01/22 Rx iron) tablet blood-glucose meter (Blood Glucose #1 ea 04/05/22 06/01/22 Rx Sheba
--- NOTE | 2022-06-01 11:59 | WPDHPUPDATE1 ---
History and Physical Update Update Date/Time: 06/01/22 11:59 History and Physical has been reviewed, including an updated exam of the patient. There are NO changes in the patient's condition. Risks, benefits, and alternatives have been discussed and questions answered. Patient agrees to proceed with procedure.
--- NOTE | 2022-06-01 13:38 | WPDANESEPPF ---
Anes - Initial Pre Proc Eval Procedure: Operation Date: 06/01/22 12:00 Proposed Procedures p Section - Carlee Moses MD Date/Time: 06/01/22 13:38 Surgeon: Carlee Moses MD Pre Op Diagnosis: repeat c/s Patient Data Age: 31 Gender: F Height: 1.63 m Weight: 85.8 kg Last Vital Signs Temp 37.1 C 06/01/22 10:45 Pulse 107 H 06/01/22 10:47 Resp 18 06/01/22 10:45 BP 116/74 06/01/22 10:47 O2 Del Method Room Air 06/01/22 10:39 Allergies Allergy/AdvReac Type Severity Reaction Status Date / Time No Known Allergies Allergy Verified 05/31/22 13:04 Home Medications Medication Instructions Recorded Confirmed Type vits 75-iron 28 mg-folic 1 pkg PO DAILY 08/20/19 06/01/22 History acid 800 mcg-omega-3 oral combo pack (One A Day Women's DHA) ferrous sulfate 325 mg (65 mg 325 mg PO BID #90 tabs 03/28/22 06/01/22 Rx iron) tablet blood-glucose meter (Blood Glucose #1 ea 04/05/22 06/01/22 Rx Monitoring kit) lancets 32 gauge #100 ea 04/05/22 06/01/22 Rx blood sugar diagnostic (Blood #100 ea 04/19/22 06/01/22 Rx Glucose Test strips) Laboratory Tests 06/01/22 10:30 POC Capillary Glucose 80 mg/dl mg/dl (65-105) Patient hx anesthesia problems: none Family hx anesthesia problems: none Results Review: All pre-operative results and documents have been reviewed as part of the pre-operative evaluation. [facility] Past Medical History Medical History Left ovarian cyst Surgical History Surgical History H/O ovarian cystectomy Previous section x 3 Family History Family History Grandparent Diabetes mellitus Hypertension Family history of coronary artery disease Mother Hypertension Social History Social History Smoking status: Never smoker Second hand tobacco smoke exposure: No Alcohol intake: never Substance use: never Lack of Transportation: No Lack of Food: Never True Current Housing: I Have Housing Concerned About Future Housing: No Difficulty Paying Gas/Electric Bills: No Difficulty Paying for Meds: No Currently Unemployed: No Education: High School Diploma/GED Difficulty w/ Childcare or Family Care: No Gender identity (if verbalized by the patient): Female Spiritual care concerns: No Comments late entry due to computer prob Anes - Eval Final PreProcedure Day of Procedure 06/01/22 13:38 Patient weight: overweight Heart: regular rate and rhythm Lungs: clear to auscultation Airway: Mallampati scale class II Neurological: alert and oriented Last oral intake: >/= 8 hours ASA classification: II Emergent: no Anesthetic plan: proceed Anesthesia type and monitoring: regional spinal and standard monitoring Results Review: All pre-operative results and documents have been reviewed as part of the pre-operative evaluation. Informed Consent: The patient's anesthetic plan and its attendant risks and benefits were discussed with the patient/family/POA. Questions were solicited and answers provided to the satisfaction of the patient/family/POA.
--- NOTE | 2022-06-01 14:18 | W.PM.PROC2 ---
Procedure Note - Detailed Date of Procedure 06/01/22 Pre-op Diagnosis IUP at 39 weeks gestation Previous section x 3 Multiparity, desires permanent sterilization Post-op Diagnosis Same Procedure Performed Repeat low transverse section via Pfannenstiel Bilateral tubal ligation via modified [place] method Surgeon Carlee Moses MD Environmental Epidemiologist Krissy Henderson Anesthesia Spinal Findings Live female in cephalic presentation weighing 7 lbs. 9 oz., apgars 1,6, and 8, nuchal cord x 1, clear amniotic fluid; normal appearing uterus, ovaries and fallopian tubes bilaterally, approx. 0.5cm right paratubal cyst Description of Procedure The patient was taken to the operating room, where she self-transferred to the operating room table. Spinal anesthesia was administered and found to be adequate. The patient was placed in dorsal supine position with a leftward tilt. She was prepped and draped in the usual sterile fashion. Spinal anesthesia was tested and found to be adequate. A Pfannenstiel skin incision was made with a scalpel and carried through to underlying layer of fascia with the Bovie. The fascia was incised in the midline and the incision was extended laterally with the use of forceps and Maxwell scissors. The inferior aspect of the fascial incision was grasped with Ebony clamps, elevated, and the underlying rectus muscle were dissected off with Maxwell scissors. Attention was then turned to the superior aspect of the fascial incision, which in a similar manner, was grasped with Ebony clamps, elevated, and the underlying rectus muscles were also dissected off with Maxwell scissors. The rectus muscles were in the midline and the peritoneal cavity was entered bluntly. This incision was extended superiorly and inferiorly with good visualization of the bladder and care was taken to avoid blood vessels. A bladder blade was inserted. A low-transverse uterine incision was made with a scalpel. This incision was extended laterally with bandage scissors. Amniotomy was performed. Clear amniotic fluid was noted. The 's head was grasped and gently guided to the level of the uterine incision. The infant's head was delivered easily and atraumatically without difficulty. A nuchal cord x 1 was noted and reduced. The infant's neck, shoulders, and rest of body were then delivered with gentle fundal pressure. The infant's nose and mouth were suctioned bulb suction. The infant whimpered. The cord was clamped and cut and the infant was handed off to awaiting nursing staff. A segment of cord was collected for cord gases. Cord blood was also collected. The placenta was then delivered manually with gentle uterine massage. Uterus was exteriorized and cleared of all clots and debris. The uterine incision was reapproximated with 0 Vicryl in a running, locked fashion. A second imbricating layer using 0 Monocryl performed. A few areas of oozing were noted just inferior to incision. These areas were made hemostatic with figure of eight sutures using 0 Monocryl as well as light cautery with bovie. Excellent hemostasis was noted. On inspection, the uterus, ovaries, and fallopian tubes appeared to be normal bilaterally. A small 0.5cm paratubal cyst was noted. Attention was then turned to the right fallopian tube, which was identified and followed through to the fimbriated end. The tube was grasped with a Sudarshan clamp and elevated. With the use of Bovie, a window was created in the mesosalpinx just beneath the tube. Four free ties using 2-0 plain suture were used to create an intervening segment of tube. Two sutures were placed on either side of the intervening segment of tube. An approximate 3cm segment of intervening tube was then excised with Metzenbaum scissors. The excised portion of the tube was handed off the field to be sent to pathology for analysis. The tubal stumps were cauterized and excellent hemostasis was noted. In a similar manner, attention was turned to the left fal
[2022-06-01] MEDS: NALBUPHINE HCL INJ 10 MG/ML AMPUL 2 MG IV PUSH (15:02)
[2022-06-01] MEDS: KETOROLAC 30 MG/ML VIAL (*BKC) 15 MG IV PUSH (15:10)
--- NOTE | 2022-06-01 16:34 | P.PCNOB_ITS ---
OB - Delivery Note Procedure Delivery date: 06/01/22 Procedure: Procedures Operation Date: 06/01/22 12:00 Actual Procedure Side Surgeon p Section Bilateral Carlee Moses MD Events: Gestational Diabetes and Previous Delivery Route of delivery: Specimen: Yes (placenta and cord, cord blood, and cord gases) Quantitative Blood Loss (ml): 755 Anesthesia type: Spinal Disposition: PACU Complications: No immediate complications [place] Baby Date of : 06/01/22 Time of : 12:50 Weeks of gestation at delivery: 39 Infant gender: Female Weight (pounds): 7 Weight (ounces): 9 presentation: vertex Placenta delivery description: Manual Removal Cord Vessel Description: 3 Vessels and Nuchal Cord (x1) score one minute: 1 score five minutes: 6 score ten minutes: 8 AMG Delivery Billing Delivery Delivery: Delivery Charge
--- NOTE | 2022-06-01 16:41 | OBPPTRN ---
Patient transferred to post room # 290 via stretcher. Support person present. Infant remains in level 2 nursery. Oriented to unit, room, information board, rooming in, admission packet and security measures. Pt introductions made and plan of care discussed per post op c section, pain management, breast feeding, and daily care activities. PT and spouse both received instructions this shift and no barriers to learning identified at thist time. Patient verbalizes understanding.
[2022-06-01] MEDS: SIMETHICONE 80 MG TAB.CHEW PO (17:35)
[2022-06-01] MEDS: LANOLIN (LANSINOH) 7.5 GM CREAM 1 APPLIC TOPICAL (17:36)
[2022-06-01] MEDS: KETOROLAC 30 MG/ML VIAL (*BKC) IV PUSH ×2 (17:36→23:49)
[2022-06-01] MEDS: DEXTROSE 5%/0.45% SOD CHL 1,000 ML 125 ML IV CONT (20:43)
--- NOTE | 2022-06-01 20:43 | PC.NURSE ---
Patient received her 500ml bag of pitocin after delivery but it was not documented in the MAR. It was infused at 2042.
[2022-06-01] MEDS: diphenhydrAMINE HCl INJ 50 MG/ML VIAL 25 MG IV PUSH (23:49)
[2022-06-02 04:15] VITALS: BP 109/75; PULSE 106; RESP 18; TEMP 36.4
[2022-06-02 05:21] LABS: Basophils Percent Auto 0.3 % (0.2-1.2); Eosinophils Percent Auto 0.1 % (0-4.4); Hematocrit 24.4 % (37.0-47.0); Hemoglobin 8.2 g/dL (12.0-15.0); Immature Granulocyte Absolute 0.14 K/mm3 (0.00-0.031); Lymphocytes Absolute Auto 1.51 K/mm3 (0.9-3.2); Lymphocytes Percent Auto 10.5 % (18.3-44.2); Mean Corpuscular HGB Conc 33.6 g/dl (32-36); Mean Corpuscular Hemoglobin 31.3 pg (26-34); Mean Corpuscular Volume 93.1 fl (80-100); Mean Platelet Volume 11.1 fl (7.4-10.4); Monocytes Absolute Auto 1.2 K/mm3 (0.1-0.6); Monocytes Percent Auto 8.1 % (2.6-8.5); Neutrophils Absolute Auto 11.5 K/mm3 (1.3-6.7); Platelet Count Result 165 k/mm3 (150-375); Red Blood Count 2.62 M/mm3 (4.2-5.4); White Blood Count 14.4 K/mm3 (4.5-10.0)
[2022-06-02 07:30] VITALS: BP 108/70; PULSE 100; RESP 16; TEMP 36.9; O2SAT 100
[2022-06-02] MEDS: SIMETHICONE 80 MG TAB.CHEW PO ×4 (07:46→22:01)
[2022-06-02] MEDS: POLYSACCHARIDE IRON COMPLEX 150 MG CAPSULE PO ×2 (07:46→16:42)
[2022-06-02] MEDS: DOCUSATE SODIUM 100 MG CAPSULE PO ×2 (07:46→16:42)
[2022-06-02] MEDS: IBUPROFEN 600 MG TABLET PO ×3 (07:47→21:01)
[2022-06-02] MEDS: MULTIVIT/MIN/PREN/FOL AC/IRON TABLET 1 TAB PO (07:50)
--- NOTE | 2022-06-02 08:43 | WPDANLDPN2 ---
Anes-Prog Note L&D Date/Time: 06/02/22 08:43 Comfortable throughout: section Neuraxial method: spinal Epidural/Spinal procedure site: clean & non-tender Neuro status: Neuro function grossly intact. Cardiovascular status: normal Respiratory status: normal Airway patency: baseline Mental status: baseline Post-Op hydration status: normal Vital Signs: Last Vital Signs Temp 36.9 C 06/02/22 07:30 Pulse 100 06/02/22 07:30 Resp 16 06/02/22 07:30 BP 108/70 06/02/22 07:30 Pulse Ox 100 06/02/22 07:30 O2 Del Method Room Air 06/01/22 17:00 Pain score (VAS): 2/10 I/O: Intake & Output 06/01/22 06/02/22 06/02/22 23:59 07:59 15:59 Intake Total 300 900 Output Total 1242 625 Balance -942 275 Post-procedural complaints: none Patient feedback: Patient satisfied with anesthetic care.
--- NOTE | 2022-06-02 08:44 | WPDANLDNPN2 ---
Anes-Prog Note L&D-Neuraxial Date/Time: 06/02/22 08:44 Neuraxial medications: intrathecal PF morphine Opiod-related complaints: pruritis (mild with treatment) Patient feedback: Patient satisfied with post-operative pain management.
--- NOTE | 2022-06-02 10:05 | PC.NURSE ---
[id number] Introductions were made, then consulted with patient to assess needs related to . Mother led the conversation with her?plans to feed?her infant and that it is time to feed but she doesn't want to wake the baby. Encouraged understanding of the benefits of skin to skin (demonstrating unwrapping and placing vertically on her chest), responsive feeding and how to watch for early feeding signs, frequency of feeding on demand about every 8-12 times in 24 hours (every 2-3 hours), milk production, duration of feeding, signs of adequate intake/output and how to record on the feeding sheet. Mother verbalizes accepting assistance. Mother demonstrated latching unsuccessfully. either latched only on the nipple or tongue sucked at the tip of the nipple. RN suggested practicing the football position. Mother was reluctant at first, then agreed to give it another effort. Reviewed positioning and ear, shoulder, hip alignment, supporting the breast, asymmetrical latch (off-center), and leading with the chin with a big, open, wide gape. Infant latched optimally to the right breast in football position. Education given to mother of how to visualize suck/swallow ratios, listen for drinking at the breast and stimulating infant to actively breastfeed. Infant was able to maintain latch without discomfort to mother. Nipple care reviewed with optimal latch and good positioning. Reviewed milk production, risk and benefits of bottle feeding and pumping her breast. Mother voiced understanding of responsive feedings, stimulating with skin to skin, touching and talking to infant to encourage if it has been 2 -3 hours since the start of the last , to call if infant does not latch, there is discomfort with or assistance with offering the left breast. Reported to the primary RN.
--- NOTE | 2022-06-02 10:17 | PC.NURSE ---
[id number] Introductions were made, then consulted with patient to assess needs related to . Mother led the conversation with her?plans to feed?her infant and accepted offer of assistance with since it was almost 2.5 hours since the start of the last . Mother works well with her with encouragement and education. RN assessed BS and it resulted at 77mg/dl. Encouraged understanding of the benefits of skin to skin (demonstrating unwrapping and placing vertically on her chest), responsive feeding and how to watch for early feeding signs, frequency of feeding on demand about every 8-12 times in 24 hours (every 2-3 hours), milk production, duration of feeding, signs of adequate intake/output and how to record on the feeding sheet. Reviewed positioning and ear, shoulder, hip alignment, supporting the breast, asymmetrical latch (off-center), and leading with the chin with a big, open, wide gape. Infant latched optimally to the left breast in football position. Education given to mother of how to visualize suck/swallow ratios and listen for drinking at the breast. Infant was able to maintain latch without discomfort to mother. Nipple care reviewed with optimal latch, good positioning and teaching a good habit of deep latching not just on the nipple. Mother voiced understanding of responsive feedings, stimulating with skin to skin, massage touch, talking to to encourage if it has been 2 -3 hours since the start of the last , to call if infant does not latch or there is discomfort with . Reported to the primary RN.
[2022-06-02 11:39] VITALS: BP 108/65; PULSE 109; RESP 18; TEMP 36.6; O2SAT 100
--- NOTE | 2022-06-02 12:31 | PM.OBPNVD ---
OB - PN: Subj Subjective Date/time seen: 06/02/22 12:30 Patient doing well. Pain reasonably well controlled with medication. Denies any headache, chest pain, SOB, nausea, or vomiting. Tolerating PO diet. Ambulating without difficulty. Voiding well. Passing flatus. OB - PN: Obj Data Labs 06/02/22 04:07 Labs: Laboratory Results - last 24 hr 06/02/22 04:07 WBC 14.4 H RBC 2.62 L Hgb 8.2 L Hct 24.4 L MCV 93.1 MCH 31.3 MCHC 33.6 RDW 15.0 H Plt Count 165 MPV 11.1 H Immature Gran % (Auto) 1.0 H Neut % (Auto) 80.0 H Lymph % (Auto) 10.5 L [place] % (Auto) 8.1 Eos % (Auto) 0.1 Baso % (Auto) 0.3 Lymph # (Auto) 1.51 [place] # (Auto) 1.2 H Eos # (Auto) 0.0 Baso # (Auto) 0.0 Abs Immat Gran (auto) 0.14 H Absolute Neuts (auto) 11.5 H Absolute Nucleated RBC 0.0 Nucleated RBC % 0.0 OB - PN A/P Assessment and Plan (1) Delivery by section of full-term : Code(s): O82 - Encounter for delivery without indication Status: Acute Assessment and Plan: POD#1 doing well continue routine postoperative care encourage ambulation and use of IS Time Spent With Patient Time: Total time spent is greater than 50% in coordination of care (as documented) at patient's floor/unit and/or counseling patient: Review of Systems Review of Systems: All systems reviewed & are unremarkable except as noted in HPI and below Exam Const: General: cooperative, healthy appearing, comfortable and no acute distress GI: Inspection: non-distended GI Palp: Yes Soft to palpation and No Tenderness to palpation present (GI) Other: inc covered with bandage, c/d/i Extrem: Right lower extremity: no edema Left lower extremity: no edema Other: no calf tenderness
[2022-06-02] MEDS: HYDROcodone/acetaminophen (*CRX) 5-325 MG TABLET 1 TAB PO ×2 (16:42→21:01)
[2022-06-02 18:54] VITALS: BP 119/69; PULSE 107; RESP 16; TEMP 36.7
[2022-06-03] MEDS: IBUPROFEN 600 MG TABLET PO ×3 (05:03→22:15)
[2022-06-03] MEDS: HYDROcodone/acetaminophen (*CRX) 5-325 MG TABLET 1 TAB PO ×5 (05:03→22:15)
[2022-06-03] MEDS: DOCUSATE SODIUM 100 MG CAPSULE PO ×2 (08:46→16:15)
[2022-06-03] MEDS: POLYSACCHARIDE IRON COMPLEX 150 MG CAPSULE PO (08:47)
[2022-06-03] MEDS: MULTIVIT/MIN/PREN/FOL AC/IRON TABLET 1 TAB PO (08:47)
[2022-06-03 08:50] VITALS: BP 118/80; PULSE 98; RESP 18; TEMP 36.1; O2SAT 100
--- NOTE | 2022-06-03 16:10 | PM.OBPNVD ---
OB - PN: Subj Subjective Date/time seen: 06/03/22 08:45 Patient doing well this AM. Reports some mild-moderate cramping reasonably controlled with medication. Denies any headache, chest pain, SOB, N/V. Tolerating PO diet. Ambulating without difficulty. Voiding well. Passing flatus. OB - PN: Obj Data Labs 06/02/22 04:07 OB - PN A/P Assessment and Plan (1) Delivery by section of full-term infant: Code(s): O82 - Encounter for delivery without indication Status: Acute Assessment and Plan: POD#2 doing well continue routine postoperative care encourage ambulation and use of IS anticipate dc home tomorrow Time Spent With Patient Time: Total time spent is greater than 50% in coordination of care (as documented) at patient's floor/unit and/or counseling patient: Review of Systems Review of Systems: All systems reviewed & are unremarkable except as noted in HPI and below Exam Const: General: cooperative, healthy appearing, comfortable and no acute distress GI: Inspection: non-distended GI Palp: Yes Soft to palpation and No Tenderness to palpation present (GI) Other: inc c/d/i fundus firm below umbilicus Extrem: Right lower extremity: no edema Left lower extremity: no edema Other: no calf tenderness
[2022-06-03 19:45] VITALS: BP 124/82; PULSE 109; RESP 16; TEMP 36.5
[2022-06-04] MEDS: HYDROcodone/acetaminophen (*CRX) 5-325 MG TABLET 1 TAB PO ×2 (01:30→10:17)
[2022-06-04 08:05] VITALS: BP 131/84; PULSE 104; RESP 18; TEMP 36.4; O2SAT 100
[2022-06-04 09:00] VITALS: PULSE 104; RESP 18; O2SAT 100
[2022-06-04] MEDS: POLYSACCHARIDE IRON COMPLEX 150 MG CAPSULE PO ×2 (10:16→13:24)
[2022-06-04] MEDS: IBUPROFEN 600 MG TABLET PO (10:16)
[2022-06-04] MEDS: SIMETHICONE 80 MG TAB.CHEW PO (10:16)
[2022-06-04] MEDS: DOCUSATE SODIUM 100 MG CAPSULE PO (10:17)
--- NOTE | 2022-06-04 10:24 | PM.OBPNVD ---
OB - PN: Subj Subjective Date/time seen: 06/04/22 10:24 Patient doing well this AM. Pain reasonably controlled with medication. Denies any headache, chest pain, SOB, N/V. Tolerating PO diet. Ambulating without difficulty. Voiding well. Passing flatus. OB - PN: Obj Data Labs 06/02/22 04:07 OB - PN A/P Assessment and Plan (1) Delivery by section of full-term infant: Code(s): O82 - Encounter for delivery without indication Status: Acute Assessment and Plan: POD#3 doing well continue routine postoperative care dc home today in stable condition emergency precautions reviewed f/u in office in 2 weeks for postoperative visit/wound check Time Spent With Patient Time: Total time spent is greater than 50% in coordination of care (as documented) at patient's floor/unit and/or counseling patient: Review of Systems Review of Systems: All systems reviewed & are unremarkable except as noted in HPI and below Exam Const: General: cooperative, healthy appearing, comfortable and no acute distress GI: Inspection: non-distended GI Palp: Yes Soft to palpation and No Tenderness to palpation present (GI) Other: fundus firm below umbilicus inc c/d/i Extrem: Right lower extremity: edema (trace) Left lower extremity: edema (trace) Other: no calf tenderness
--- NOTE | 2022-06-04 10:26 | PM.OBDSVD ---
DS: Admitting Diagnosis Discharge Date 06/04/22 Admitting Diagnosis IUP at 39w gestation Previous C/S x 3 OB - DS: Summary OB Procedures : None OB Procedures Intrapartum: and Tubal ligation OB Procedures: : None Peripartum Data Procedures: Procedures Operation Date: 06/01/22 12:00 Actual Procedure Side Surgeon p Section Bilateral Carlee Moses MD Time Spent with Patient Time attestation: Total time spent providing and/or coordinating discharge services: DS: Data Data Completed and Pending Pending studies at discharge: Pending at discharge 06/01/22 12:51 Surgical [PTH] Routine Surgical [PTH] Routine Surgical [PTH] Routine Discharge Plan Discharge Attending physician on discharge: Carlee Moses Discharging Clinician: Carlee Moses Anticipated Discharge Date/Time: 06/04/22 10:27 Patient Disposition: Home, Self-Care Activity: as tolerated and pelvic rest Diet: regular Discharge Instructions: Call office ([phone]) to schedule the following appointments: 1. Postoperative/wound check in 2 weeks. 2. visit in 4-6 weeks. You may take Ibuprofen 600mg every 6 hours as needed for pain. I have sent a prescription for a stronger pain medication, Verbena, to your pharmacy. You may take this as prescribed for breakthrough pain (pain that is not controlled with Ibuprofen). No driving for at least two weeks. You also may not drive while taking narcotics. Pain medication may make you constipated. It may be helpful to take an [id number] stool softener, such as Colace and/or Senokot, along with the pain medication to help lessen constipation. Call office or go to ED for pain not controlled with medication, headache, chest pain, shortness of breath, fever, chills, persistent nausea or vomiting, severe abdominal pain, heavy vaginal bleeding >2 pads/hour, foul vaginal discharge or odor, any redness near incision, severe pain, pus or drainage from incision site, or problems with your breasts. Patient Instructions: Antibiotic Form Stand Alone Forms: General Discharge Information Follow-up/Referrals: Carlee Moses MD [Physician] - Discharge Medications: New hydrocodone-acetaminophen 5-325 mg Tablet 1 - 2 tablet PO Q4-6H PRN (Reason: Moderate Pain (4-6)) Qty: 30 0RF Continued One A Day Women's DHA 28 mg iron- 800 mcg combo pack 1 pkg PO DAILY Discontinued ferrous sulfate 325 mg (65 mg iron) tablet 325 mg PO BID Qty: 90 1RF No Action (DME) blood-glucose meter [Blood Glucose Monitoring] Kit See Rx Instructions .Route Qty: 1 0RF Rx Instructions: As directed (DME) lancets 32 gauge misc See Rx Instructions .Route Qty: 100 0RF Rx Instructions: As directed (DME) Blood Glucose Test Strip See Rx Instructions .Route Qty: 100 1RF Rx Instructions: QID Date of admission: 06/01/22 09:57 Primary Care Provider: Arturo Becerril Admitting Provider: Carlee Moses Attending physician on admission: Carlee Moses Condition: Stable
[2022-06-04] MEDS: MULTIVIT/MIN/PREN/FOL AC/IRON TABLET 1 TAB PO (13:24)
[2022-06-04] MEDS: MEASLES,MUMPS,RUBELLA VACCINE 0.5 ML VIAL SUB-Q (13:24)
== END 2022-06-04 14:00 | disposition home or self-care (01) | DRG 785 ==
LOC: ANHLDR 10:04 → ANHOB2 16:57
PROVIDERS: Admitting Provider Student in an Organized Health Care Education/Training Program; PCP Family Medicine; Visit Provider Student in an Organized Health Care Education/Training Program
PROC: 10D00Z1 Extraction of Products of Conception, Low, Open Approach (ICD-10-PCS; CPT 59514; principal; 2022-06-01 12:00)
DX: O34.219 Maternal care for unspecified type scar from previous cesarean delivery (principal); Z30.2 Encounter for sterilization; O69.81X0 Labor and delivery complicated by cord around neck, without compression, not applicable or unspecified; O24.420 Gestational diabetes mellitus in childbirth, diet controlled; Z3A.39 39 weeks gestation of pregnancy; Z37.0 Single live birth; Z23 Encounter for immunization
CPT/HCPCS: 36415; 82948; 85025; 85027; 86592; 86850; 86900; 86901; 88302; 88307; 90471; 90686; 90710; A9270; G0008; J0131; J0690; J1100; J1200; J1885; J2274; J2300; J2405; J2590; J7120

== ENCOUNTER 2024-05-06 08:07 | Emergency (ER) | payer BC, SELFPAY ==
--- NOTE | 2024-05-06 08:14 | ED_ITS ---
HPI - URI/Sore Throat General Chief Complaint: Upper Respiratory Infection Stated Complaint: Fever / sore throat History of Present Illness HPI Narrative: 33-year-old female presented for complaint of sore throat , fever, and headache for 2 days. reports temp up to 101. Taking Tylenol. Denies cough, nausea, vomiting, diarrhea or lethargy. Related Data Allergies Allergy/AdvReac Type Severity Reaction Status Date / Time No Known Allergies Allergy Verified 04/27/23 14:08 Review of Systems Review of Systems: CONSTITUTIONAL: Denies body aches, fever, chills, or sweats. EYES: Denies visual changes, redness, or discharge. ENT:Reports sore throat Denies rhinorrhea, congestion, or otalgia. CARDIOVASCULAR: Denies chest pain, palpitations, or edema. RESPIRATORY: Denies dyspnea. GASTROINTESTINAL: Denies abdominal pain, nausea, vomiting, or diarrhea. SKIN: Denies rash, itching, or wounds. MUSCULOSKELETAL: Denies back pain, joint pain, or myalgia. NEUROLOGIC: Denies headache PMFSH Past Medical History Medical History Left ovarian cyst Surgical History Surgical History H/O ovarian cystectomy Previous section x 4 Family History Family History Grandparent Diabetes mellitus Hypertension Family history of coronary artery disease Mother Hypertension Social History Social History Smoking status: Never smoker Second hand tobacco smoke exposure: No Alcohol intake: never Substance use: never Lack of Transportation: No Lack of Food: Never True Current Housing: I Have Housing Concerned About Future Housing: No Difficulty Paying Gas/Electric Bills: No Difficulty Paying for Meds: No Currently Unemployed: No Education: High School Diploma/GED Difficulty w/ Childcare or Family Care: No Gender identity (if verbalized by the patient): Female Spiritual care concerns: No Exam Narrative: GENERAL: Ill-appearing, nontoxic no acute distress. EYES: conjunctivae clear ENT: Mucous membranes moist. TMs pearly grossman with normal light reflex bila terally; no tragal tenderness. Oropharynx erythematous Tonsils enlarged with exudate. No drooling, no hoarseness, no trismus, uvula midline. No tripod positioning, hot potato voice, or soft palate swelling. NECK: Supple. No lymphadenopathy CHEST: Clear to auscultation, breath sounds equal. No respiratory distress, speaks in full sentences. HEART: Regular rate and rhythm. No murmur heard. SKIN: Warm, dry, no rash. NEURO: Alert and oriented x3. Course Course Emergency Course: Patient is aware of diagnosis, understands and agrees to treatment plan. Anticipatory guidance given. Patient agrees to follow-up as directed and is aware of reasons to seek care at the emergency department. Portions of this record may have been created with voice recognition software Level of Care: Express Care Visit MDM - URI/Sore Throat MDM Narrative Medical decision making narrative: POS strep result reviewed with pt. Advise supportive treatments. Patient is appropriate for outpatient treatment and follow-up. Differential Diagnosis Differential diagnosis: Likely upper respiratory infection, viral infection and pharyngitis Discharge Plan Discharge Clinical Impression: Strep pharyngitis Patient Disposition: Home, Self-Care Condition: Stable Instructions: Antibiotic Form, Strep Throat (ED) Additional Instructions: - Take the antibiotic as directed. Fever and sore throat typically resolve within one to three days. Most patients can return to work, after 12 to 24 hours of antibiotic therapy, provided you are fever free and otherwise well. -Eat and drink things that are easy to swallow, like soft foods, cool liquids, tea with honey, or popsicles . -Salt water gargles and/or may use topical anesthetic ( Chloraseptic spray) or lozenges to relieve dryness or throat pain -Alternate Tylenol and ibuprofen as needed for pain and fever as directed. -Frequent hand washing or hand manager environmental health and safety is one of the best ways to prevent spread of infection. Throw away the toothbrush after 24hours of antibiotic. -Follow up with primary care provider in 2-3 days if condition is not improving -Go to the ER if you have trouble breathing, cannot drink enough fluids, have muffled voice or drooling, difficulty opening your mouth, or severe swelling. Prescriptions: New amoxicillin 500 mg tablet 1,000 mg PO DAILY 10 Days Qty: 20 0RF Follow-up/Referrals: Arturo Becerril MD [Primary Care Provider] - Stand Alone Forms: Work/School Release IP Time of Disposition: 08:28
[2024-05-06 08:22] VITALS: BP 101/75; PULSE 98; RESP 16; TEMP 36.4; O2SAT 100
[2024-05-06 08:28] VITALS: BP 138/78; PULSE 69; RESP 20; TEMP 36.8; O2SAT 99
[2024-05-06 08:36] LABS: EDSTREPNEGPOS1 Positive (Negative)
== END 2024-05-06 08:32 | disposition home or self-care (01) ==
PROVIDERS: Emergency Provider Nurse Practitioner Family; PCP Family Medicine
DX: J02.0 Streptococcal pharyngitis (principal)
CPT/HCPCS: 87880